=== PATIENT | female | born 2000 | race Two or more races ===

== ENCOUNTER 2024-03-27 23:59 | Emergency (ER) | payer BC ==
[2024-03-28] MEDS ORDERED: Sodium Chloride 0.9% 2.5 ML Syringe FLUSH PRN (00:51)
[2024-03-28] MEDS ORDERED: Sodium Chloride 0.9% 10 ML Syringe FLUSH PRN (00:51)
[2024-03-28 01:05] LABS: BASOPHILS ABSOLUTE AUTO 0.04 K/uL (0.00-0.20); BASOPHILS PERCENT AUTO 0.3 % (0.0-1.0); EOSINOPHILS ABSOLUTE AUTO 0.15 K/uL (0.00-0.45); EOSINOPHILS PERCENT AUTO 1.3 % (0.0-6.0); HEMATOCRIT 38.1 % (37.0-47.0); HEMOGLOBIN 12.9 g/dL (12.0-16.0); IMMATURE GRAN ABSOLUTE AUTO 0.06 K/uL (0.00-0.05); IMMATURE GRAN PERCENT AUTO 0.5 % (0.0-0.4); LYMPHOCYTES ABSOLUTE AUTO 3.58 K/uL (1.00-4.80); LYMPHOCYTES PERCENT AUTO 30.8 % (24.0-44.0); MEAN CORPUSCULAR HEMOGLOBIN 26.2 pg (28.0-32.0); MEAN CORPUSCULAR HGB CONC 33.9 g/dL (32.0-36.0); MEAN CORPUSCULAR VOLUME 77.3 fL (83.0-99.0); MEAN PLATELET VOLUME 11.5 fL (9.4-12.3); MONOCYTES ABSOLUTE AUTO 0.75 K/uL (0.00-0.80); MONOCYTES PERCENT AUTO 6.4 % (0.0-8.0); NEUTROPHILS ABSOLUTE AUTO 7.06 K/uL (1.80-7.70); NEUTROPHILS PERCENT AUTO 60.7 % (41.0-71.0); PLATELET COUNT,PLT 176 K/uL (150-400); RED BLOOD CELL COUNT 4.93 M/uL (4.10-5.30); WHITE BLOOD CELL COUNT,WBC 11.64 K/uL (3.9-11.3)
[2024-03-28 01:28] LABS: A/G RATIO 0.8 (0.9-1.6); ALBUMIN 3.2 g/dL (3.4-5.0); BILIRUBIN TOTAL 0.2 mg/dL (0.2-1.0); CALCIUM 9.4 mg/dL (8.5-10.1); CARBON DIOXIDE,CO2 29.5 mmol/L (21.0-32.0); CREATININE 0.5 mg/dL (0.6-1.0); EST CRCL DRUG DOSING (CG) 153.69 mL/min; POTASSIUM,K 3.7 mmol/L (3.5-5.1)
[2024-03-28 02:50] LABS: BILIRUBIN,URINE NEGATIVE (NEGATIVE); GLUCOSE,URINE NEGATIVE (NEGATIVE); KETONES,URINE NEGATIVE (NEGATIVE); LEUKOCYTE ESTERASE,URINE NEGATIVE (NEGATIVE); NITRITE,URINE NEGATIVE (NEGATIVE); OCCULT BLOOD,URINE LARGE (NEGATIVE); PH,URINE 7.5 (5.0-8.0); PROTEIN,URINE 30 mg/dL (NEGATIVE); UROBILINOGEN,URINE 0.2 EU/dL (<2.0)
[2024-03-28 02:51] LABS: APPEARANCE,URINE CLOUDY; COLOR,URINE RED; EPITHELIAL CELLS,URINE RARE (NONE-FEW); RBC,URINE TOO NUMEROUS TO CT (0-2/HPF); WBC,URINE 0-5 (0-5/HPF)
[2024-03-28 02:52] LABS: BACTERIA,URINE RARE (NEGATIVE)
== END 2024-03-28 03:11 | disposition home or self-care (01) ==
LOC: MW.ED 23:59
DX: O20.9 Hemorrhage in early pregnancy, unspecified (principal); Z3A.15 15 weeks gestation of pregnancy
CPT/HCPCS: 36415; 76801; 76801-26; 80053; 81001; 85025; 86900; 86901; 99284